=== PATIENT | female | born 1960 | race Caucasian/White ===

== ENCOUNTER → 2016-04-19 | Outpatient (CLI) | payer BC | LOC: M WUC 10:53 | PROVIDERS: ATTEND Family Medicine | DX: E11.9 Type 2 diabetes mellitus without complications (principal) ==

== ENCOUNTER → 2016-05-19 | Outpatient (REF) | payer BC | LOC: M SFHCPLAZ 13:23 | PROVIDERS: ATTEND Family Medicine | DX: L02.92 Furuncle, unspecified (principal); Z53.8 Procedure and treatment not carried out for other reasons ==

== ENCOUNTER → 2016-05-19 | Outpatient (CLI) | payer BC | LOC: M WUC 13:57 | PROVIDERS: ATTEND Family Medicine | DX: L02.92 Furuncle, unspecified (principal) ==

== ENCOUNTER → 2016-07-21 | Outpatient (REF) | payer BC | LOC: M SFHCPLAZ 15:14 | PROVIDERS: ATTEND Family Medicine | DX: E11.65 Type 2 diabetes mellitus with hyperglycemia (principal) ==

== ENCOUNTER → 2016-08-18 | Outpatient (REF) | payer BC | LOC: M SFHCPLAZ 15:15 | PROVIDERS: ATTEND Family Medicine | DX: E11.65 Type 2 diabetes mellitus with hyperglycemia (principal); Z53.9 Procedure and treatment not carried out, unspecified reason ==

== ENCOUNTER → 2016-09-15 | Outpatient (REF) | payer BC | LOC: M SFHCPLAZ 15:41 | PROVIDERS: ATTEND Family Medicine | DX: E11.65 Type 2 diabetes mellitus with hyperglycemia (principal); Z53.8 Procedure and treatment not carried out for other reasons ==

== ENCOUNTER → 2016-10-27 | Outpatient (REF) | payer BC | LOC: M SFHCPLAZ 15:55 | PROVIDERS: ATTEND Family Medicine | DX: E11.9 Type 2 diabetes mellitus without complications (principal) ==

== ENCOUNTER → 2016-12-20 | Outpatient (CLI) | payer BC ==
[2016-12-20 14:18] LABS: ALBUMIN 3.4 GM/DL (3.2-5.2); ALKALINE PHOSPHATASE 53 U/L (45-117); ALT/SGPT 21 U/L (12-78); ANION GAP 7 MEQ/L (8-16); AST/SGOT 5 U/L (15-37); BILIRUBIN,TOTAL 0.3 MG/DL (0.2-1.0); BLOOD UREA NITROGEN 25 MG/DL (7-18); CALCIUM LEVEL 8.5 MG/DL (8.5-10.1); CARBON DIOXIDE LEVEL 30 MEQ/L (21-32); CHLORIDE LEVEL 106 MEQ/L (98-107); CHOLESTEROL LEVEL 227 MG/DL (<200); CREATININE FOR GFR 0.74 MG/DL (0.55-1.02); GLOMERULAR FILTRATION RATE > 60.0 (>51); GLUCOSE, FASTING 133 MG/DL (70-105); POTASSIUM SERUM 4.7 MEQ/L (3.5-5.1); SODIUM LEVEL 143 MEQ/L (136-145); TOTAL PROTEIN 6.8 GM/DL (6.4-8.2); TRIGLYCERIDES LEVEL 224 MG/DL (<150)
--- NOTE | 2016-12-21 13:20 | REP ---
LEFT HIP: Two views of the left hip are performed. There is no acute fracture, dislocation or intrinsic bone disease. There are mild degenerative changes of the left hip with mild joint space narrowing, subchondral sclerosis and spurring. IMPRESSION: Mild degenerative changes. Signed by Javier Fenton MD 12/21/2016 07:02 P
== END ==
LOC: M RAD 11:42
PROVIDERS: ATTEND Obstetrics & Gynecology
DX: M25.552 Pain in left hip (principal); E11.9 Type 2 diabetes mellitus without complications; E78.2 Mixed hyperlipidemia; Z68.41 Body mass index [BMI] 40.0-44.9, adult

== ENCOUNTER 2017-04-16 10:32 | Day surgery (SDC) | payer BC ==
[2017-04-16] MEDS: NS 1,000 ML IV (10:45)
[2017-04-16 11:25] LABS: BEDSIDE GLUCOSE 193 MG/DL (70-105)
[2017-04-16] MEDS ORDERED: PROPOFOL 500 MG/50 ML VIAL As Ordered (11:36)
[2017-04-16] MEDS ORDERED: MIDAZOLAM INJ 2 MG/2 ML VIAL (J2250) As Ordered (11:47)
== END 2017-04-16 13:05 | disposition home or self-care (01) ==
LOC: M OPP 10:32
DX: Z12.11 Encounter for screening for malignant neoplasm of colon (principal); K62.1 Rectal polyp; D12.2 Benign neoplasm of ascending colon; K57.30 Diverticulosis of large intestine without perforation or abscess without bleeding; K64.0 First degree hemorrhoids; E78.5 Hyperlipidemia, unspecified; I10 Essential (primary) hypertension; M16.12 Unilateral primary osteoarthritis, left hip; R20.2 Paresthesia of skin; Z79.4 Long term (current) use of insulin; Z79.899 Other long term (current) drug therapy; Z90.49 Acquired absence of other specified parts of digestive tract; Z78.0 Asymptomatic menopausal state
CPT/HCPCS: 45385

== ENCOUNTER → 2017-07-04 | Outpatient (CLI) | payer BC | LOC: M RAD 10:54 | DX: J06.9 Acute upper respiratory infection, unspecified (principal) | CPT/HCPCS: 71046 ==

== ENCOUNTER → 2017-09-22 | Outpatient (CLI) | payer BC | LOC: M RAD 17:18 | DX: M25.521 Pain in right elbow (principal); M79.644 Pain in right finger(s) | CPT/HCPCS: 73080 ==

== ENCOUNTER → 2017-10-06 | Outpatient (CLI) | payer BC ==
[2017-10-06 20:04] LABS: ESTIMATED AVERAGE GLUCOSE 240 MG/DL (60-110)
== END ==
LOC: M WUC 16:54
DX: E11.65 Type 2 diabetes mellitus with hyperglycemia (principal)
CPT/HCPCS: 83036

== ENCOUNTER → 2018-04-26 | Outpatient (CLI) | payer OTHER ==
[~2018-04-26] MED LIST: ATOR1TAB21 PO; INSULANT SC; LISI-538 PO; METF10004 PO; VITA500046 PO
--- NOTE | 2018-04-26 09:21 | PFTRPT ---
Height: 64.00 Inches Weight: 235.00 Lbs BSA: 2.09 Diagnosis: J38.5 DATE OF PROCEDURE: 04/26/2018 ORDERED BY: Dr. Merlyn Torres Spirometry: Excellent technical quality. Forced vital capacity normal. FEV1 is in proportion. Obstructive index is, therefore, normal. Flow Volume Loop: Expiratory limb of the flow volume loop is normal. Lung Volumes: Total lung capacity normal. Residual volume is in proportion. Diffusing Capacity: Diffusing capacity mildly reduced. Hemoglobin: No hemoglobin available for correction. Airway Mechanics: Airway resistance and conductance are normal. IMPRESSION: Mild decline in the absolute diffusing capacity requires clinical correlation. MTDD
== END ==
LOC: M CARPUL 08:51
PROVIDERS: ATTEND Obstetrics & Gynecology
DX: J38.5 Laryngeal spasm (principal)

== ENCOUNTER → 2018-07-12 | Outpatient (CLI) | payer OTHER ==
[2018-07-12 19:07] LABS: BLOOD UREA NITROGEN 26 MG/DL (7-18); CALCIUM LEVEL 8.5 MG/DL (8.5-10.1); CARBON DIOXIDE LEVEL 27 MEQ/L (21-32); CHLORIDE LEVEL 105 MEQ/L (98-107); CHOLESTEROL LEVEL 166 MG/DL (<200); CHOLESTEROL RISK RATIO 3.192 (<5); CREATININE FOR GFR 0.97 MG/DL (0.55-1.30); GLOMERULAR FILTRATION RATE > 60.0 (>51); GLUCOSE, FASTING 222 MG/DL (70-100); HDL CHOLESTEROL 52 MG/DL (>40); LDL CHOLESTEROL 84 MG/DL (<100); NON-HDL-C 114 MG/DL; POTASSIUM SERUM 4.6 MEQ/L (3.5-5.1); SODIUM LEVEL 139 MEQ/L (136-145); TRIGLYCERIDES LEVEL 149 MG/DL (<150)
== END ==
LOC: M WUC 13:58
PROVIDERS: ATTEND Obstetrics & Gynecology
DX: E78.2 Mixed hyperlipidemia (principal); E11.65 Type 2 diabetes mellitus with hyperglycemia

== ENCOUNTER → 2018-07-12 | Outpatient (REF) | payer OTHER | LOC: M SFHCPLAZ 13:31 | PROVIDERS: ATTEND Family Medicine | DX: E11.65 Type 2 diabetes mellitus with hyperglycemia (principal); E78.2 Mixed hyperlipidemia ==

== ENCOUNTER → 2018-10-22 | Outpatient (CLI) | payer OTHER ==
[2018-10-22 16:41] LABS: BLOOD UREA NITROGEN 27 MG/DL (7-18); CALCIUM LEVEL 9.3 MG/DL (8.5-10.1); CARBON DIOXIDE LEVEL 31 MEQ/L (21-32); CHLORIDE LEVEL 107 MEQ/L (98-107); CHOLESTEROL LEVEL 162 MG/DL (<200); CHOLESTEROL RISK RATIO 3.306 (<5); CREATININE FOR GFR 0.94 MG/DL (0.55-1.30); GLOMERULAR FILTRATION RATE > 60.0 (>51); GLUCOSE, FASTING 125 MG/DL (70-100); HDL CHOLESTEROL 49 MG/DL (>40); LDL CHOLESTEROL 81 MG/DL (<100); NON-HDL-C 113 MG/DL; POTASSIUM SERUM 5.1 MEQ/L (3.5-5.1); SODIUM LEVEL 142 MEQ/L (136-145); TRIGLYCERIDES LEVEL 160 MG/DL (<150)
[2018-10-22 16:49] LABS: CREATININE, URINE 92.4 MG/DL; MALB URINE SIEMENS 90.1 MG/L; MAU/CREAT RATIO 97.5 MCG/MG (0.0-30.0)
[2018-10-22 16:58] LABS: HEMOGLOBIN A1c 9.1 %
== END ==
LOC: M WUC 10:50
PROVIDERS: ATTEND Obstetrics & Gynecology
DX: E78.2 Mixed hyperlipidemia (principal); E11.65 Type 2 diabetes mellitus with hyperglycemia; I10 Essential (primary) hypertension

== ENCOUNTER → 2018-10-22 | Outpatient (REF) | payer OTHER | LOC: M SFHCPLAZ 10:31 | PROVIDERS: ATTEND Family Medicine | DX: E11.65 Type 2 diabetes mellitus with hyperglycemia (principal); E78.2 Mixed hyperlipidemia; I10 Essential (primary) hypertension; Z53.9 Procedure and treatment not carried out, unspecified reason ==

== ENCOUNTER 2019-01-12 12:31 | Emergency (ER) | payer OTHER ==
[~2019-01-12] VITALS: Ht 162.6 cm; Wt 111.8 kg
[2019-01-12] MEDS ORDERED: IPRATROPIUM 0.5MG/ALBUTEROL 2.5MG INH SOL UD 3ML (DUONEB)(J7620) NEB ONE (13:00)
[2019-01-12] MEDS ORDERED: GI COCKTAIL 50ML BTL(HYOSCYAMINE/MAALOX/LIDOCAINE VISCOUS)(1:3:1) PO ONE (13:00)
[2019-01-12] MEDS ORDERED: BASA100I SC (13:01)
[2019-01-12 13:04] LABS: BASO # 0.1 10^3/uL (0.0-0.2); BASO % 0.6 % (0.0-1.0); EOS # 0.1 10^3/uL (0.0-0.5); EOS % 1.6 % (0.0-3.0); HEMATOCRIT 42.2 % (36.0-47.0); LYMPH # 1.8 10^3/uL (1.5-5.0); LYMPH % 22.7 % (24.0-44.0); MEAN CORPUSCULAR HEMOGLOBIN 29.3 pg (27.0-33.0); MEAN CORPUSCULAR HGB CONC 33.2 g/dl (32.0-36.5); MEAN CORPUSCULAR VOLUME 88.3 fl (80.0-96.0); MONO # 0.6 10^3/uL (0.0-0.8); MONO % 6.9 % (0.0-5.0); NEUTROPHILS # 5.5 10^3/uL (1.5-8.5); NEUTROPHILS % 68.1 % (36.0-66.0); PLATELET COUNT, AUTOMATED 253 10^3/uL (150-450); RED BLOOD COUNT 4.78 10^6/uL (4.00-5.40); WHITE BLOOD COUNT 8.1 10^3/uL (4.0-10.0)
--- NOTE | 2019-01-12 13:08 | REP ---
Single view chest: 01/12/2019. Indication: Chest pain. Comparison: 07/04/2018. Findings: The lungs are clear. No significant pleural fluid is present. There is no pneumothorax. Cardiac silhouette is within normal limits. Mediastinum is unremarkable. Impression: No acute cardiopulmonary process. Electronically Signed by Alberto Roldan DO 01/12/2019 01:00 P
[2019-01-12 13:58] LABS: ALBUMIN 3.5 GM/DL (3.2-5.2); ALT/SGPT 30 U/L (12-78); AMYLASE 40 U/L (25-115); BILIRUBIN,DIRECT < 0.1 MG/DL (0.0-0.2); BILIRUBIN,TOTAL 0.4 MG/DL (0.2-1.0); BLOOD UREA NITROGEN 24 MG/DL (7-18); CALCIUM LEVEL 8.9 MG/DL (8.5-10.1); CARBON DIOXIDE LEVEL 25 MEQ/L (21-32); CHLORIDE LEVEL 106 MEQ/L (98-107); CK-MB VALUE MASS < 1.0 NG/ML (<3.6); CPK CREATINE PHOSPHOKINASE 84 U/L (26-192); CREATININE FOR GFR 1.02 MG/DL (0.55-1.30); GLOMERULAR FILTRATION RATE 59.7 (>51); GLUCOSE, FASTING 202 MG/DL (70-100); LIPASE 163 U/L (73-393); MB/CK RELATIVE INDEX 1.19 (< OR =4); POTASSIUM SERUM 4.4 MEQ/L (3.5-5.1); SODIUM LEVEL 139 MEQ/L (136-145); TROPONIN I < 0.02 NG/ML (< 0.10)
[2019-01-12 14:55] VITALS: BP 126/57
--- NOTE | 2019-01-12 15:13 | ECGEPIP ---
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
== END 2019-01-12 15:24 | disposition home or self-care (01) ==
LOC: M ED 12:31
DX: R00.2 Palpitations (principal); R06.02 Shortness of breath; I51.9 Heart disease, unspecified; E11.9 Type 2 diabetes mellitus without complications; I10 Essential (primary) hypertension; Z79.4 Long term (current) use of insulin; Z79.899 Other long term (current) drug therapy

== ENCOUNTER → 2019-03-08 | Outpatient (CLI) | payer OTHER ==
[~2019-03-08] MED LIST changes: +BASA100I SC
--- NOTE | 2019-03-08 11:52 | REPMRS ---
Patient History The patient states she has not had a clinical breast exam in over a year. Patient is postmenopausal. Family history of breast cancer at age 50 or over in maternal aunt, prostate cancer in maternal grandfather. 3D TOMOSYNTHESIS WAS PERFORMED. The Colin Garzon lifetime risk for breast cancer is 11.9%. Digital Woman Screen Mammo: March 08, 2019 - Exam #: [id number] Bilateral CC and MLO view(s) were taken. Technologist: Babita Nicholas, Technologist Prior study comparison: 2019, bilateral digital woman screen mammo, performed at [facility]. FINDINGS: There are scattered fibroglandular densities. There has been no change in the appearance of the mammogram from the prior studies. There is a mild amount of residual fibroglandular tissue which is fairly symmetric. There is no interval development of dominant mass, architectural distortion, or clustered microcalcification suggestive of malignancy. Assessment: BI-RADS/ACR category 1 mammogram. Negative Mammogram. Recommendation Routine screening mammogram in 1 year (for women over age 40). This mammogram was interpreted with the aid of an FDA-approved computer-aided dectection system. Electronically Signed By: Javier Fenton MD 03/08/19 [id number]
== END ==
LOC: M WHC 09:41
PROVIDERS: ATTEND Obstetrics & Gynecology
DX: Z12.31 Encounter for screening mammogram for malignant neoplasm of breast (principal)

== ENCOUNTER → 2019-05-02 | Outpatient (REF) | payer OTHER | LOC: EEVIPCON 16:41 → M SFHCPLAZ 16:41 | PROVIDERS: ATTEND Obstetrics & Gynecology | DX: H60.393 Other infective otitis externa, bilateral (principal) ==

== ENCOUNTER → 2019-10-06 | Outpatient (CLI) | payer OTHER ==
[~2019-10-06] MED LIST changes: +LORA-674; +MACR100C43 PO; +TRUL0.5I
[2019-10-06 17:21] LABS: BLOOD UREA NITROGEN 25 MG/DL (7-18); CALCIUM LEVEL 9.2 MG/DL (8.5-10.1); CARBON DIOXIDE LEVEL 29 MEQ/L (21-32); CHLORIDE LEVEL 104 MEQ/L (98-107); GLOMERULAR FILTRATION RATE > 60.0 (>51); GLUCOSE, FASTING 164 MG/DL (70-100); POTASSIUM SERUM 4.5 MEQ/L (3.5-5.1); SODIUM LEVEL 140 MEQ/L (136-145)
[2019-10-06 17:52] LABS: HEMOGLOBIN A1c 8.8 %
== END ==
LOC: M WUC 11:52
PROVIDERS: ATTEND Obstetrics & Gynecology
DX: E11.65 Type 2 diabetes mellitus with hyperglycemia (principal); I10 Essential (primary) hypertension

== ENCOUNTER 2020-01-20 15:30 | Emergency (ER) | payer OTHER ==
[~2020-01-20] VITALS: Ht 162.6 cm; Wt 114.2 kg
[~2020-01-20 15:30] MED LIST changes: -LORA-674; -MACR100C43 PO; -TRUL0.5I
[2020-01-20] MEDS ORDERED: LORA-674 (15:55)
[2020-01-20] MEDS ORDERED: TRUL0.5I (15:55)
[2020-01-20] MEDS ORDERED: HumuLIN R (REGULAR) INSULIN (NovoLIN R) **100U/ML** PER UNIT IV ONE (16:30)
[2020-01-20] MEDS ORDERED: cloNIDine 0.1 MG TAB PO ONE (16:30)
[2020-01-20] MEDS ORDERED: NS 1,000 ML IV ONE (16:30)
[2020-01-20 16:46] LABS: VENOUS BASE EXCESS -2.1 (-2.0-2.0); VENOUS HCO3 24.9 MEQ/L (23.0-27.0); VENOUS O2 SATURATION 66.6 % (60.0-80.0); VENOUS PARTIAL PRESSURE CO2 51.4 mmHg (38.0-50.0); VENOUS PARTIAL PRESSURE O2 37.2 mmHg (30.0-50.0); VENOUS PH 7.303 UNITS (7.330-7.430); VENOUS TOTAL CO2 26.5 MEQ/L (24.0-28.0)
[2020-01-20 16:49] LABS: BASO % 0.6 % (0.0-1.0); EOS # 0.1 10^3/uL (0.0-0.5); EOS % 1.7 % (0.0-3.0); HEMATOCRIT 39.5 % (36.0-47.0); LYMPH # 1.9 10^3/uL (1.5-5.0); LYMPH % 26.8 % (24.0-44.0); MEAN CORPUSCULAR HEMOGLOBIN 28.9 pg (27.0-33.0); MEAN CORPUSCULAR HGB CONC 32.9 g/dl (32.0-36.5); MEAN CORPUSCULAR VOLUME 87.8 fl (80.0-96.0); MONO # 0.6 10^3/uL (0.0-0.8); MONO % 7.8 % (0.0-5.0); NEUTROPHILS # 4.5 10^3/uL (1.5-8.5); NEUTROPHILS % 62.8 % (36.0-66.0); PLATELET COUNT, AUTOMATED 243 10^3/uL (150-450); WHITE BLOOD COUNT 7.2 10^3/uL (4.0-10.0)
--- NOTE | 2020-01-20 17:07 | REPVR ---
PROCEDURE INFORMATION: Exam: CT Head Without Contrast Exam date and time: 01/20/2020 4:19 PM Age: 59 years old Clinical indication: Other: High BP, dizzy TECHNIQUE: Imaging protocol: Computed tomography of the head without contrast. Radiation optimization: All CT scans at this facility use at least one of these dose optimization techniques: automated exposure control; mA and/or kV adjustment per patient size (includes targeted exams where dose is matched to clinical indication); or iterative reconstruction. COMPARISON: CT Head without contrast 09/14/2015 1:06 AM FINDINGS: Brain: Unremarkable. No hemorrhage. No significant white matter disease. No edema. Cerebral ventricles: No ventriculomegaly. Bones/joints: Unremarkable. No acute fracture. Paranasal sinuses: Visualized sinuses are unremarkable. No fluid levels. Mastoid air cells: Visualized mastoid air cells are well aerated. Soft tissues: Unremarkable. IMPRESSION: No acute abnormality. Electronically signed by: Coleman Chase On 01/20/2020 17:07:42 PM
[2020-01-20 17:14] LABS: OSMOLALITY SERUM 299 MOSM/KG (275-295)
[2020-01-20] MEDS ORDERED: GI COCKTAIL 50ML BTL(HYOSCYAMINE/MAALOX/LIDOCAINE VISCOUS)(1:3:1) PO ONE (17:15)
[2020-01-20 17:19] LABS: ACETONE/KETONE 1.11 MG/DL (<2.81); ALBUMIN 3.5 GM/DL (3.2-5.2); ALT/SGPT 27 U/L (12-78); BILIRUBIN,DIRECT < 0.1 MG/DL (0.0-0.2); BILIRUBIN,TOTAL 0.2 MG/DL (0.2-1.0); CK-MB VALUE MASS < 1.0 NG/ML (<3.6); CPK CREATINE PHOSPHOKINASE 79 U/L (26-192); LIPASE 204 U/L (73-393); MB/CK RELATIVE INDEX 1.27 (< OR =4); TOTAL PROTEIN 7.1 GM/DL (6.4-8.2); TROPONIN I < 0.02 NG/ML (< 0.10)
[2020-01-20] MEDS ORDERED: MACR100C43 PO (18:47)
[2020-01-20 18:54] VITALS: BP 124/71
[2020-01-20] MEDS ORDERED: NITROFURANTOIN (MACROBID) 100 MG CAP PO ONE (19:00)
--- NOTE | 2020-01-20 20:38 | ECGEPIP ---
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
== END 2020-01-20 19:10 | disposition home or self-care (01) ==
LOC: M ED 15:30
DX: E11.65 Type 2 diabetes mellitus with hyperglycemia (principal); I10 Essential (primary) hypertension; N39.0 Urinary tract infection, site not specified; Z79.899 Other long term (current) drug therapy; Z79.4 Long term (current) use of insulin

== ENCOUNTER → 2020-02-22 | Outpatient (CLI) | payer OTHER ==
[~2020-02-22] MED LIST changes: +LORA-674; +MACR100C43 PO; +TRUL0.5I
[2020-02-22 12:27] LABS: CALCIUM LEVEL 8.8 MG/DL (8.5-10.1); CHOLESTEROL RISK RATIO 5.772 (<5); CREATININE FOR GFR 1.11 MG/DL (0.55-1.30); GLOMERULAR FILTRATION RATE 53.9 (>51)
[2020-02-22 12:37] LABS: MAU/CREAT RATIO 63.5 MCG/MG (0.0-30.0)
== END ==
LOC: M WUC 09:53
PROVIDERS: ATTEND Student in an Organized Health Care Education/Training Program
DX: E11.65 Type 2 diabetes mellitus with hyperglycemia (principal); E78.2 Mixed hyperlipidemia

== ENCOUNTER 2020-03-20 18:40 | Emergency (ER) | payer OTHER ==
[~2020-03-20] VITALS: Ht 165.1 cm; Wt 113.1 kg
[~2020-03-20 18:40] MED LIST changes: -ELIQ5TAB PO; -HYDR12.55; -ROSU10TA6
[2020-03-20] MEDS ORDERED: HYDR12.55 (18:52)
[2020-03-20] MEDS ORDERED: ROSU10TA6 (18:52)
--- NOTE | 2020-03-20 21:55 | REPVR ---
PROCEDURE INFORMATION: Exam: US Duplex Left Lower Extremity Veins, Limited Exam date and time: 03/20/2020 9:28 PM Age: 59 years old Clinical indication: Pain; Leg, lower; Left; Additional info: Lle pain/elevated dimer; R/O dvt TECHNIQUE: Imaging protocol: Real-time Duplex ultrasound of the Left Lower Extremity with 2-D sunshine scale, color Doppler flow and spectral waveform analysis with image documentation. Limited exam focused on the left lower extremity veins. COMPARISON: No relevant prior studies available. FINDINGS: Left deep veins: Echogenic, nonocclusive thrombus in the popliteal vein. The common femoral and femoral veins are patent without thrombus. Left superficial veins: Unremarkable. Saphenofemoral junction is patent without thrombus. Soft tissues: Unremarkable. IMPRESSION: Echogenic, nonocclusive thrombus in the popliteal vein. Electronically signed by: Bentley Garnica On 03/20/2020 21:55:12 PM
[2020-03-20] MEDS ORDERED: APIXABAN 5 MG TAB (ELIQUIS) PO ONE (22:00)
[2020-03-20 22:31] VITALS: BP 138/69
[2020-03-20] MEDS ORDERED: ELIQ5TAB PO (22:42)
[2020-03-20 22:47] LABS: INR 0.92; PROTHROMBIN TIME 12.6 SECONDS (12.5-14.3)
[2020-03-20 22:48] LABS: PARTIAL THROMBOPLASTIN TIME 28.7 SECONDS (24.2-38.5)
[2020-03-21 10:36] LABS: DRVV SCREEN 52.3 SEC; PTT LUPUS TYPE ANTICOAG SCREEN 1.3 (0-1.2)
[2020-03-21 10:43] LABS: DRVV CONFIRM 40.9 SEC; LUPUS CONFIRM RATIO 1.1
[2020-03-21 10:44] LABS: NORMALIZED RATIO 1.18 (0.00-1.20)
== END 2020-03-21 01:21 | disposition home or self-care (01) ==
LOC: M ED 18:40
DX: I82.432 Acute embolism and thrombosis of left popliteal vein (principal); E11.9 Type 2 diabetes mellitus without complications; I10 Essential (primary) hypertension; Z79.4 Long term (current) use of insulin; Z79.899 Other long term (current) drug therapy

== ENCOUNTER → 2020-03-20 | Outpatient (CLI) | payer OTHER ==
[~2020-03-20] MED LIST changes: +ELIQ5TAB PO; +HYDR12.55; +ROSU10TA6
== END ==
LOC: M WUC 10:33
PROVIDERS: ATTEND Student in an Organized Health Care Education/Training Program
DX: M79.605 Pain in left leg (principal)

== ENCOUNTER → 2020-04-06 | Outpatient (CLI) | payer OTHER ==
[~2020-04-06] MED LIST changes: +ELIQ5TAB PO; +HYDR12.55; +ROSU10TA6
--- NOTE | 2020-04-06 10:15 | REP ---
INDICATION: LEFT LEG PAIN COMPARISON: 03/20/2020 TECHNIQUE: Fenton scale and color Doppler evaluation left lower extremity using linear high frequency transducer. FINDINGS: Ultrasound examination of the left lower extremity again demonstrates nonocclusive thrombus in the left popliteal vein unchanged from prior examination. The remainder of the exam from the common femoral vein to the distal superficial femoral vein demonstrate normal patency and flow characteristics. IMPRESSION: Stable nonocclusive thrombus in the left popliteal vein unchanged. No new thrombus appreciated. <Electronically signed by Vu Stern > 04/06/20 [id number]
== END ==
LOC: M RAD 09:36
PROVIDERS: ATTEND Internal Medicine Nephrology
DX: M79.605 Pain in left leg (principal); I82.532 Chronic embolism and thrombosis of left popliteal vein

== ENCOUNTER 2020-09-04 17:14 | Emergency (ER) | payer OTHER ==
[~2020-09-04] VITALS: Ht 162.6 cm; Wt 107.8 kg
[~2020-09-04 17:14] MED LIST changes: -LISI-538 PO; +LISI20TA33 PO
--- NOTE | 2020-09-04 21:20 | REPVR ---
PROCEDURE INFORMATION: Exam: US Duplex Left Lower Extremity Veins, Limited Exam date and time: 09/04/2020 8:35 PM Age: 60 years old Clinical indication: Pain; Leg, lower; Left; Additional info: Lll pain TECHNIQUE: Imaging protocol: Real-time Duplex ultrasound of the Left Lower Extremity with 2-D sunshine scale, color Doppler flow and spectral waveform analysis with image documentation. Limited exam focused on the left lower extremity veins. COMPARISON: US Duplex, Ext,LOWER veins,unilat 04/06/2020 9:55 AM FINDINGS: Left deep veins: Unremarkable. The common femoral, femoral, proximal profunda femoral and popliteal veins are patent without thrombus. Normal Doppler waveforms. Normal compressibility and/or augmentation response. Left superficial veins: Unremarkable. Saphenofemoral junction is patent without thrombus. Soft tissues: Unremarkable. IMPRESSION: No evidence of DVT. Electronically signed by: Zander Leonard On 09/04/2020 21:20:19 PM
[2020-09-04] MEDS ORDERED: CAPS0.022 TOP (23:00)
[2020-09-04] MEDS ORDERED: LIDOCAINE 4% CREAM 5GM (LMX4) TOP ONE (23:05)
[2020-09-04 23:13] VITALS: BP 165/86
== END 2020-09-04 23:18 | disposition home or self-care (01) ==
LOC: M ED 17:14
DX: M79.605 Pain in left leg (principal); E11.9 Type 2 diabetes mellitus without complications; I10 Essential (primary) hypertension; E78.5 Hyperlipidemia, unspecified; Z86.718 Personal history of other venous thrombosis and embolism; Z79.01 Long term (current) use of anticoagulants; Z79.4 Long term (current) use of insulin; Z79.899 Other long term (current) drug therapy

== ENCOUNTER 2021-05-20 12:08 | Emergency (ER) | payer OTHER ==
[~2021-05-20] VITALS: Ht 162.6 cm; Wt 109.4 kg
[~2021-05-20 12:08] MED LIST changes: +CAPS0.022 TOP
[2021-05-20 17:19] LABS: BASO % 0.5 % (0.0-1.0); EOS # 0.2 10^3/uL (0.0-0.5); EOS % 2.2 % (0.0-3.0); HEMATOCRIT 38.4 % (36.0-47.0); HEMOGLOBIN 12.8 g/dl (12.0-15.5); LYMPH # 1.9 10^3/uL (1.5-5.0); LYMPH % 23.4 % (24.0-44.0); MEAN CORPUSCULAR HGB CONC 33.3 g/dl (32.0-36.5); MEAN CORPUSCULAR VOLUME 87.1 fl (80.0-96.0); MONO # 0.6 10^3/uL (0.0-0.8); MONO % 7.4 % (2.0-8.0); NEUTROPHILS # 5.4 10^3/uL (1.5-8.5); NEUTROPHILS % 66.1 % (36.0-66.0); PLATELET COUNT, AUTOMATED 235 10^3/uL (150-450); RED BLOOD COUNT 4.41 10^6/uL (4.00-5.40); WHITE BLOOD COUNT 8.2 10^3/uL (4.0-10.0)
[2021-05-20 17:31] LABS: APPEARANCE, URINE HAZY (CLEAR); BACTERIA, URINE AUTO 1+ (NEGATIVE); BILIRUBIN, URINE AUTO NEGATIVE (NEGATIVE); BLOOD, URINE BLOOD 1+ (NEGATIVE); CALCIUM LEVEL 8.7 MG/DL (8.5-10.1); COLOR, URINE YELLOW (YELLOW); CREATININE FOR GFR 1.19 MG/DL (0.55-1.30); GLOMERULAR FILTRATION RATE 49.6 (>51); GLUCOSE, URINE (UA) AUTO 3+ mg/dL (NEGATIVE); KETONE, URINE AUTO NEGATIVE (NEGATIVE); LEUKOCYTE ESTERASE, URINE AUTO TRACE (NEGATIVE); MUCUS, URINE SMALL (NEGATIVE); NITRITE, URINE AUTO POSITIVE (NEGATIVE); POTASSIUM SERUM 4.9 MEQ/L (3.5-5.1); PROTEIN, URINE AUTO NEGATIVE (NEGATIVE); RBC, URINE AUTO 1 /HPF (0-3); SPECIFIC GRAVITY URINE AUTO 1.029 (1.002-1.035); SQUAMOUS EPITHELIAL CELL UR AU 1 /HPF (0-6); UROBILINOGEN, URINE AUTO 0.2 mg/dL (0.0-2.0); WBC, URINE AUTO 14 /HPF (0-3)
[2021-05-20 18:06] VITALS: BP 164/72
== END 2021-05-20 18:07 | disposition home or self-care (01) ==
LOC: M ED 12:08
DX: I10 Essential (primary) hypertension (principal); E11.9 Type 2 diabetes mellitus without complications; Z79.4 Long term (current) use of insulin; Z79.899 Other long term (current) drug therapy

== ENCOUNTER 2021-06-10 07:24 | Emergency (ER) | payer OTHER ==
[2021-06-10] MEDS ORDERED: HYDR12.55 (07:35)
[2021-06-10] MEDS ORDERED: GABA-282 PO (09:52)
[2021-06-10 10:10] VITALS: BP 135/67
== END 2021-06-10 10:21 | disposition home or self-care (01) ==
LOC: M ED 07:24
DX: E11.40 Type 2 diabetes mellitus with diabetic neuropathy, unspecified (principal); I10 Essential (primary) hypertension; Z79.4 Long term (current) use of insulin; Z79.899 Other long term (current) drug therapy

== ENCOUNTER → 2021-11-03 | Outpatient (CLI) | payer OTHER ==
[~2021-11-03] MED LIST changes: +GABA-282 PO
[2021-11-03 12:02] LABS: ALBUMIN 3.3 GM/DL (3.2-5.2); BILIRUBIN,TOTAL 0.2 MG/DL (0.2-1.0); CALCIUM LEVEL 8.8 MG/DL (8.5-10.1); CHOLESTEROL RISK RATIO 3.326 (<5); CREATININE FOR GFR 1.04 MG/DL (0.55-1.30); GLOMERULAR FILTRATION RATE 57.7 (>51); POTASSIUM SERUM 3.9 MEQ/L (3.5-5.1); TOTAL PROTEIN 6.8 GM/DL (6.4-8.2)
[2021-11-03 12:11] LABS: MAU/CREAT RATIO 76.5 MCG/MG (0.0-30.0)
== END ==
LOC: M RAD 10:27
PROVIDERS: ATTEND Internal Medicine
DX: E11.9 Type 2 diabetes mellitus without complications (principal)

== ENCOUNTER → 2021-12-08 | Outpatient (CLI) | payer OTHER ==
[2021-12-08 13:15] LABS: CREATININE FOR GFR 1.01 MG/DL (0.55-1.30); GLOMERULAR FILTRATION RATE 59.7 (>51); POTASSIUM SERUM 4.1 MEQ/L (3.5-5.1)
== END ==
LOC: M LAB 12:22
PROVIDERS: ATTEND Student in an Organized Health Care Education/Training Program
DX: I10 Essential (primary) hypertension (principal)

== ENCOUNTER → 2021-12-13 | Outpatient (CLI) | payer OTHER ==
[~2021-12-13] MED LIST changes: +PROHANCE 279.3MG/ML 5ML VIAL ONE
== END ==
LOC: M PLAIMG 12:05
PROVIDERS: ATTEND Student in an Organized Health Care Education/Training Program
DX: M54.10 Radiculopathy, site unspecified (principal)

== ENCOUNTER → 2022-01-06 | Outpatient (CLI) | payer OTHER ==
[~2022-01-06] MED LIST changes: -PROHANCE 279.3MG/ML 5ML VIAL ONE
== END ==
LOC: M SOG 08:03
PROVIDERS: ATTEND Orthopaedic Surgery
DX: M25.551 Pain in right hip (principal)

== ENCOUNTER 2022-01-24 12:40 | Outpatient (RCR) | payer OTHER | END 2022-01-27 23:59 | disposition home or self-care (01) | LOC: M PT 12:40 | PROVIDERS: ATTEND Orthopaedic Surgery | DX: M43.17 Spondylolisthesis, lumbosacral region (principal) ==

== ENCOUNTER → 2022-02-18 | Outpatient (CLI) | payer OTHER | LOC: M WHC 16:10 | PROVIDERS: ATTEND Student in an Organized Health Care Education/Training Program | DX: Z12.31 Encounter for screening mammogram for malignant neoplasm of breast (principal) ==

== ENCOUNTER 2022-02-19 13:00 | Outpatient (RCR) | payer OTHER | END 2022-02-26 | LOC: M PT 13:00 | PROVIDERS: ATTEND Orthopaedic Surgery | DX: M43.17 Spondylolisthesis, lumbosacral region (principal) ==

== ENCOUNTER 2022-03-26 12:07 | Outpatient (RCR) | payer OTHER | END 2022-03-29 | LOC: M PT 12:07 | PROVIDERS: ATTEND Orthopaedic Surgery | DX: M43.17 Spondylolisthesis, lumbosacral region (principal) ==

== ENCOUNTER 2022-04-05 22:45 | Emergency (ER) | payer OTHER ==
[~2022-04-05] VITALS: Ht 164.5 cm; Wt 111.4 kg
[2022-04-05] MEDS ORDERED: ACET-683 PO (22:59)
[2022-04-05] MEDS ORDERED: PERCOCET 5MG/325MG TAB PO ONE (23:45)
[2022-04-05] MEDS ORDERED: CYCLOBENZAPRINE 5MG TABLET PO ONE (23:45)
[2022-04-06 00:10] LABS: BASO # 0.1 10^3/uL (0.0-0.2); BASO % 0.4 % (0.0-1.0); EOS # 0.2 10^3/uL (0.0-0.5); EOS % 1.4 % (0.0-3.0); HEMATOCRIT 41.6 % (36.0-47.0); HEMOGLOBIN 13.7 g/dl (12.0-15.5); LYMPH # 2.7 10^3/uL (1.5-5.0); LYMPH % 17.2 % (24.0-44.0); MEAN CORPUSCULAR HEMOGLOBIN 29.3 pg (27.0-33.0); MEAN CORPUSCULAR HGB CONC 32.9 g/dl (32.0-36.5); MEAN CORPUSCULAR VOLUME 88.9 fl (80.0-96.0); MONO # 1.3 10^3/uL (0.0-0.8); NEUTROPHILS # 11.5 10^3/uL (1.5-8.5); NEUTROPHILS % 72.1 % (36.0-66.0); PLATELET COUNT, AUTOMATED 315 10^3/uL (150-450); RED BLOOD COUNT 4.68 10^6/uL (4.00-5.40)
[2022-04-06 00:36] LABS: BILIRUBIN,TOTAL 0.2 MG/DL (0.3-1.2); CALCIUM LEVEL 9.5 MG/DL (8.5-10.1); CREATININE FOR GFR 1.32 MG/DL (0.55-1.30); GLOMERULAR FILTRATION RATE 43.9 (>51); POTASSIUM SERUM 4.5 MMOL/L (3.5-5.1); TOTAL PROTEIN 7.6 G/DL (5.7-8.2)
[2022-04-06] MEDS ORDERED: NS 1,000 ML IV ONE (00:55)
[2022-04-06] MEDS ORDERED: PERC5TAB12 PO (02:09)
[2022-04-06] MEDS ORDERED: CYCL5TAB PO (02:09)
[2022-04-06] MEDS ORDERED: CEFD300C41 PO (02:28)
[2022-04-06] MEDS ORDERED: PERCOCET 5MG/325MG TAB PO ONE (02:30)
[2022-04-06] MEDS ORDERED: CYCLOBENZAPRINE 5MG TABLET PO ONE (02:30)
[2022-04-06] MEDS ORDERED: CEFDINIR 300 MG CAP (OMNICEF) PO ONE (02:30)
[2022-04-06 02:46] VITALS: BP 133/70
== END 2022-04-06 02:48 | disposition home or self-care (01) ==
LOC: M ED 22:45
DX: N39.0 Urinary tract infection, site not specified (principal); E86.0 Dehydration; M54.10 Radiculopathy, site unspecified; E11.65 Type 2 diabetes mellitus with hyperglycemia; I10 Essential (primary) hypertension; Z79.4 Long term (current) use of insulin; Z79.84 Long term (current) use of oral hypoglycemic drugs; Z79.1 Long term (current) use of non-steroidal anti-inflammatories (NSAID)

== ENCOUNTER 2022-04-15 11:57 | Outpatient (RCR) | payer OTHER ==
[~2022-04-15 11:57] MED LIST changes: +ACET-683 PO; +CEFD300C41 PO; +CYCL5TAB PO; +PERC5TAB12 PO
== END 2022-04-29 ==
LOC: M PT 11:57
PROVIDERS: ATTEND Orthopaedic Surgery
DX: M43.17 Spondylolisthesis, lumbosacral region (principal)

== ENCOUNTER → 2022-05-06 | Outpatient (CLI) | payer OTHER ==
[2022-05-06 12:21] LABS: HEMOGLOBIN A1c 9.8 % (4.0-6.0)
[2022-05-06 12:39] LABS: FOLATE 15.4 NG/ML (>5.4)
[2022-05-06 13:35] LABS: RHEUMATOID FACTOR QUANT 3.9 IU/ML (<14)
== END ==
LOC: M LAB 11:05
PROVIDERS: ATTEND Nurse Practitioner Family
DX: R26.89 Other abnormalities of gait and mobility (principal); R29.6 Repeated falls; E11.42 Type 2 diabetes mellitus with diabetic polyneuropathy

== ENCOUNTER → 2022-05-06 | Outpatient (CLI) | payer OTHER ==
[2022-05-06 12:22] LABS: HEMOGLOBIN A1c 9.9 % (4.0-6.0)
[2022-05-06 12:36] LABS: CALCIUM LEVEL 8.9 MG/DL (8.5-10.1); CREATININE FOR GFR 1.07 MG/DL (0.55-1.30); GLOMERULAR FILTRATION RATE 55.9 (>51); POTASSIUM SERUM 4.4 MMOL/L (3.5-5.1)
== END ==
LOC: M LAB 11:07
PROVIDERS: ATTEND Student in an Organized Health Care Education/Training Program
DX: M54.50 Low back pain, unspecified (principal); E11.65 Type 2 diabetes mellitus with hyperglycemia

== ENCOUNTER → 2022-07-21 | Outpatient (REF) | payer OTHER | LOC: M SFHCPLAZ 16:31 | PROVIDERS: ATTEND Student in an Organized Health Care Education/Training Program | DX: E11.65 Type 2 diabetes mellitus with hyperglycemia (principal); E55.9 Vitamin D deficiency, unspecified ==

== ENCOUNTER 2022-08-21 14:30 | Outpatient (RCR) | payer OTHER | END 2022-08-27 | LOC: M PT 14:30 | PROVIDERS: ATTEND Orthopaedic Surgery | DX: M16.0 Bilateral primary osteoarthritis of hip (principal); M43.17 Spondylolisthesis, lumbosacral region ==

== ENCOUNTER 2022-09-23 11:58 | Outpatient (RCR) | payer OTHER | END 2022-09-26 | LOC: M PT 11:58 | PROVIDERS: ATTEND Orthopaedic Surgery | DX: M16.0 Bilateral primary osteoarthritis of hip (principal); M43.17 Spondylolisthesis, lumbosacral region ==

== ENCOUNTER → 2022-12-11 | Outpatient (CLI) | payer OTHER ==
[~2022-12-11] MED LIST changes: +LORA-1041; -LORA-674
== END ==
LOC: M SOG 15:34
PROVIDERS: ATTEND Orthopaedic Surgery
DX: M16.0 Bilateral primary osteoarthritis of hip (principal)

== ENCOUNTER → 2023-04-17 | Outpatient (CLI) | payer OTHER ==
[~2023-04-17] MED LIST changes: +CEFD1CAP9 PO; -CEFD300C41 PO
== END ==
LOC: M SOG 08:01
PROVIDERS: ATTEND Orthopaedic Surgery
DX: M47.812 Spondylosis without myelopathy or radiculopathy, cervical region (principal); M48.02 Spinal stenosis, cervical region; M54.2 Cervicalgia

== ENCOUNTER → 2023-05-09 | Outpatient (CLI) | payer OTHER | LOC: M RAD 12:18 | PROVIDERS: ATTEND Orthopaedic Surgery | DX: M48.02 Spinal stenosis, cervical region (principal) ==

== ENCOUNTER → 2023-06-11 | Outpatient (CLI) | payer OTHER | LOC: M SOG 15:39 | PROVIDERS: ATTEND Orthopaedic Surgery | DX: M16.0 Bilateral primary osteoarthritis of hip (principal) ==

== ENCOUNTER → 2023-06-12 | Outpatient (CLI) | payer OTHER ==
[2023-06-12 17:16] LABS: BASO # 0.1 10^3/uL (0.0-0.2); BASO % 0.7 % (0.0-1.0); EOS # 0.2 10^3/uL (0.0-0.5); EOS % 3.1 % (0.0-3.0); HEMATOCRIT 37.6 % (36.0-47.0); HEMOGLOBIN 12.5 g/dl (12.0-15.5); LYMPH % 28.5 % (24.0-44.0); MEAN CORPUSCULAR HEMOGLOBIN 29.4 pg (27.0-33.0); MEAN CORPUSCULAR HGB CONC 33.2 g/dl (32.0-36.5); MEAN CORPUSCULAR VOLUME 88.5 fl (80.0-96.0); MONO # 0.5 10^3/uL (0.0-0.8); MONO % 6.7 % (2.0-8.0); NEUTROPHILS # 4.3 10^3/uL (1.5-8.5); NEUTROPHILS % 60.7 % (36.0-66.0); PLATELET COUNT, AUTOMATED 237 10^3/uL (150-450); RED BLOOD COUNT 4.25 10^6/uL (4.00-5.40); WHITE BLOOD COUNT 7.2 10^3/uL (4.0-10.0)
[2023-06-12 17:35] LABS: INR 0.97; PROTHROMBIN TIME 12.6 SECONDS (12.5-14.5)
[2023-06-12 17:38] LABS: ALBUMIN 3.6 G/DL (3.2-5.2); ALKALINE PHOSPHATASE 50 U/L (46-116); ALT/SGPT 20 U/L (7.0-40); AST/SGOT < 8 U/L (<34); BILIRUBIN,TOTAL 0.2 MG/DL (0.3-1.2); BLOOD UREA NITROGEN 38 MG/DL (9-23); CARBON DIOXIDE LEVEL 28 MMOL/L (20-31); CHLORIDE LEVEL 101 MMOL/L (98-107); CREATININE FOR GFR 1.21 MG/DL (0.55-1.30); GLOMERULAR FILTRATION RATE 48.3 (>45); GLUCOSE, FASTING 254 MG/DL (74-106); POTASSIUM SERUM 4.8 MMOL/L (3.5-5.1); SODIUM LEVEL 137 MMOL/L (136-145); TOTAL PROTEIN 6.7 G/DL (5.7-8.2)
[2023-06-12 17:39] LABS: HEMOGLOBIN A1c 11.1 % (4.0-6.0)
[2023-06-12 17:42] LABS: TOTAL 25(OH) VITAMIN D 68.4 NG/ML (20.0-100.0)
== END ==
LOC: M LAB 16:00
PROVIDERS: ATTEND Orthopaedic Surgery
DX: M16.0 Bilateral primary osteoarthritis of hip (principal)

== ENCOUNTER 2023-08-26 12:19 | Outpatient (RCR) | payer OTHER ==
[~2023-08-26 12:19] MED LIST changes: -ROSU10TA6; +ROSU10TA61
== END 2023-08-28 ==
LOC: M PT 12:19
PROVIDERS: ATTEND Orthopaedic Surgery
DX: M16.0 Bilateral primary osteoarthritis of hip (principal)

== ENCOUNTER 2023-09-22 12:15 | Outpatient (RCR) | payer OTHER | END 2023-09-27 | LOC: M PT 12:15 | PROVIDERS: ATTEND Orthopaedic Surgery | DX: M16.0 Bilateral primary osteoarthritis of hip (principal) ==

== ENCOUNTER → 2023-09-24 | Outpatient (CLI) | payer OTHER | LOC: M SOG 08:06 | PROVIDERS: ATTEND Orthopaedic Surgery | DX: Z53.9 Procedure and treatment not carried out, unspecified reason (principal) ==

== ENCOUNTER → 2023-09-25 | Outpatient (CLI) | payer OTHER | LOC: M SOG 08:00 | PROVIDERS: ATTEND Orthopaedic Surgery | DX: M16.0 Bilateral primary osteoarthritis of hip (principal) ==

== ENCOUNTER → 2023-10-19 | Outpatient (REF) | payer OTHER | LOC: M SFHCPLAZ 17:12 | PROVIDERS: ATTEND Student in an Organized Health Care Education/Training Program | DX: R09.89 Other specified symptoms and signs involving the circulatory and respiratory systems (principal) ==

== ENCOUNTER → 2024-01-23 | Outpatient (CLI) | payer OTHER ==
[~2024-01-23] MED LIST changes: +GABA-1172 PO; -GABA-282 PO
[2024-01-23 16:52] LABS: ALBUMIN 3.4 G/DL (3.2-5.2); CALCIUM LEVEL 9.2 MG/DL (8.3-10.6); CHOLESTEROL RISK RATIO 3.28 (<5); CREATININE FOR GFR 1.09 MG/DL (0.55-1.30); GLOMERULAR FILTRATION RATE 54.3 (>45); HDL CHOLESTEROL 47.2 MG/DL (>40); LDL CHOLESTEROL 51.2 MG/DL (<100); NON-HDL-C 107.8 MG/DL; PHOSPHORUS LEVEL 4.4 MG/DL (2.4-5.1); POTASSIUM SERUM 4.8 MMOL/L (3.5-5.1)
[2024-01-23 17:13] LABS: HEMOGLOBIN A1c 9.2 % (4.0-6.0)
== END ==
LOC: M LAB 14:33
PROVIDERS: ATTEND Student in an Organized Health Care Education/Training Program
DX: Z00.00 Encounter for general adult medical examination without abnormal findings (principal); E78.2 Mixed hyperlipidemia; E11.65 Type 2 diabetes mellitus with hyperglycemia

== ENCOUNTER → 2024-01-23 | Outpatient (CLI) | payer OTHER | LOC: M RAD 14:26 | PROVIDERS: ATTEND Orthopaedic Surgery | DX: M48.02 Spinal stenosis, cervical region (principal) ==

== ENCOUNTER → 2024-05-27 | Outpatient (CLI) | payer OTHER ==
[~2024-05-27] MED LIST changes: -CYCL5TAB PO; +CYCL5TAB4 PO
[2024-05-27 12:04] LABS: HEMOGLOBIN A1c 9.2 % (4.0-6.0)
== END ==
LOC: M LAB 10:37
PROVIDERS: ATTEND Orthopaedic Surgery
DX: M48.02 Spinal stenosis, cervical region (principal)